=== PATIENT | female | born 1975 ===

== ENCOUNTER 2020-10-30 08:08 | Day surgery (SDC) | payer BC ==
[2020-10-30] MEDS ORDERED: Acetaminophen 500 MG TAB PO PRN (08:44)
[2020-10-30] MEDS ORDERED: diphenhydrAMINE 25 MG CAP PO PRN (08:45)
[2020-10-30] MEDS ORDERED: Sodium Chloride 0.9% 20 ML ONE (09:25)
[2020-10-30 14:33] VITALS: BP 105/51; TEMP 98.9
== END 2020-10-30 14:34 | disposition home or self-care (01) ==
LOC: ONC/OP 08:08
PROVIDERS: ATTEND Internal Medicine Hematology & Oncology
PROC: 30233N1 Transfusion of Nonautologous Red Blood Cells into Peripheral Vein, Percutaneous Approach (ICD-10-PCS; principal; 2020-10-30)
DX: D64.9 Anemia, unspecified (principal); D69.6 Thrombocytopenia, unspecified; Z88.2 Allergy status to sulfonamides
CPT/HCPCS: 36430; 86850; 86900; 86901; P9016; Q0163